=== PATIENT | female | born 1955 | race American Indian/Alaskan Native ===

== ENCOUNTER 2016-08-24 15:21 | Outpatient (CLI) | payer BC ==
--- NOTE | 2016-08-25 13:30 | Mammography Report ---
BILATERAL DIGITAL SCREENING MAMMOGRAM with CAD: 08/24/16 CLINICAL: Routine screening. COMPARISON:08/21/15 FINDINGS: The breasts are almost entirely fatty. No mass, architectural distortion or suspicious calcifications. IMPRESSION: No mammographic evidence of malignancy. BI-RADS CATEGORY: 2 -- Benign RECOMMENDATION: Routine mammographic screening in one year. COMMENT: Patient follow-up letters are generated by our [employer] application.
== END 2016-08-24 15:22 | disposition home or self-care (01) ==
LOC: SPVWC 15:21
PROVIDERS: ATTEND Family Medicine
DX: Z12.31 Encounter for screening mammogram for malignant neoplasm of breast (principal)
CPT/HCPCS: 77067; G0202

== ENCOUNTER 2017-10-05 09:53 | Outpatient (CLI) | payer BC ==
--- NOTE | 2017-10-06 14:27 | Mammography Report ---
BILATERAL DIGITAL SCREENING MAMMOGRAM with CAD: 10/05/17 09:53:00 CLINICAL: Routine screening. COMPARISON:08/24/16 FINDINGS: The breasts are mostly fatty. A left upper inner focal asymmetry requires additional imaging.No architectural distortion or suspicious calcifications.The right breast is negative. IMPRESSION: Left asymmetry requiring further workup. BI-RADS CATEGORY: 0 -- Additional Imaging Evaluation Required RECOMMENDATION: Recall for left lateralmedial , spot magnification CC and MLO views and left breast ultrasound if needed. ACR BI-RADS MAMMOGRAPHIC CODES: 0 = Needs additional imaging evaluation; 1 = Negative; 2 = Benign; 3 = Probably benign; 4 = Suspicious; 5 = Malignant; 6 = Known biopsy-proven malignancy COMMENT: 1. Dense breast tissue, i.e., adenosis, fibrocystic changes, etc., may obscure an underlying neoplasm. 2. Approximately 10% of cancers are not detected with mammography. 3. A negative mammography report should not delay biopsy if a clinically suspicious mass is present. COMMENT: Patient follow-up letters are generated via our [employer] application.
== END 2017-10-05 09:54 | disposition home or self-care (01) ==
LOC: SPVWC 09:53
PROVIDERS: ATTEND Family Medicine
DX: Z12.31 Encounter for screening mammogram for malignant neoplasm of breast (principal)
CPT/HCPCS: 77067

== ENCOUNTER 2017-10-29 09:33 | Outpatient (CLI) | payer BC ==
--- NOTE | 2017-10-29 10:23 | Mammography Report ---
Left mammogram and left breast ultrasound: Based on recent screening exam additional spot magnification CC and lateral views are obtained of the nodule in the upper medial left breast. The additional images demonstrate a spiculated nodule measuring approximately 6.1 mm. No calcifications identified. Ultrasound in the 10:00 location 9 cm from the nipple demonstrates a homogeneously hypoechoic nodule with minimal spiculation measuring 4.6 mm. There is no shadowing. Impression: Suspicious left nodule. Recommendation: Ultrasound-guided biopsy. The findings and recommendations have been discussed with the patient and she has been notified to contact you for scheduling. BI-RADS CATEGORY: 4 = Suspicious ACR BI-RADS MAMMOGRAPHIC CODES: 0 = Needs additional imaging evaluation; 1 = Negative; 2 = Benign; 3 = Probably benign; 4 = Suspicious; 5 = Malignant; 6 = Known biopsy-proven malignancy COMMENT: 1. Dense breast tissue, i.e., adenosis, fibrocystic changes, etc., may obscure an underlying neoplasm. 2. Approximately 10% of cancers are not detected with mammography. 3. A negative mammography report should not delay biopsy if a clinically suspicious mass is present. The
== END 2017-10-29 09:34 | disposition home or self-care (01) ==
LOC: SPVWC 09:33
PROVIDERS: ATTEND Family Medicine
DX: N64.89 Other specified disorders of breast (principal)

== ENCOUNTER 2017-11-12 13:21 | Outpatient (CLI) | payer BC ==
--- NOTE | 2017-11-12 14:46 | Mammography Report ---
LEFT DIGITAL DIAGNOSTIC MAMMOGRAM: 11/12/17 13:21:00 CLINICAL: For clip placement immediately status post ultrasound biopsy. COMPARISON:10/29/17 FINDINGS: A biopsy clip is now identified within the previously described upper inner lesion. The lesion is smaller with less well-defined margins. IMPRESSION: Concordant clip placement status post ultrasound biopsy. BI-RADS CATEGORY: 4--Suspicious Pathology pending.
--- NOTE | 2017-11-12 15:02 | Ultrasound Report ---
VACUUM ASSISTED ULTRASOUND GUIDED NEEDLE CORE BIOPSY WITH CLIP PLACEMENT LEFT BREAST: 11/12/17 13:21:00 CLINICAL: A 5 mm left breast mass at 10 o'clock 9 cm from the nipple. COMPARISON :10/29/17 FINDINGS: The procedure was explained to the patient and informed consent was obtained. Ultrasound demonstrated the previously described 5 mm mass at 10 o'clock. The skin was prepped with Betadine and anesthetized with 1% lidocaine. Vacuum-assisted needle core biopsy was performed through a small dermatotomy using ultrasound guidance, 2% lidocaine with epinephrine for deep anesthesia and a 13-gauge Mammotome Elite biopsy probe. 8 cores were obtained and placed in formalin. A hydro-maddie clip was deployed within the lesion. Hemostasis was achieved with minimal pressure and a sterile dressing was applied. The patient tolerated the procedure well and there were no apparent complications. A two view mammogram demonstrated concordant clip placement and a less well-defined lesion than on the previous mammogram. The patient left the department in good condition with instructions for wound care and follow up. IMPRESSION: Uncomplicated vacuum-assisted ultrasound core biopsy and clip placement left breast.
== END 2017-11-12 13:22 | disposition home or self-care (01) ==
LOC: SPVWC 13:21
PROVIDERS: ATTEND Family Medicine
DX: N63.20 Unspecified lump in the left breast, unspecified quadrant (principal); Z98.890 Other specified postprocedural states; R92.8 Other abnormal and inconclusive findings on diagnostic imaging of breast
CPT/HCPCS: 88305; 88342; 88361

== ENCOUNTER 2017-12-13 07:45 | Day surgery (SDC) | payer BC ==
[~2017-12-13 07:45] MED LIST: LACTATED RINGERS 1,000 ML IV SCH; VERSED IV NR
[2017-12-13] MEDS ORDERED: XYLOCAINE 1% 20 mL ONE (08:43)
[2017-12-13] MEDS ORDERED: XYLOCAINE 1% 20 mL INFILTRATI NR ×2 (09:13→09:24)
[2017-12-13] MEDS ORDERED: ANCEF/STERILE WATER 2 GM/20 ML IV NR (09:16)
[2017-12-13] MEDS ORDERED: PEPCID IV NR (10:23)
--- NOTE | 2017-12-13 10:36 | Anesthesia Day of Surgery ---
Anesthesia Day of Surgery - Day of Surgery Patient Examined: Yes Patient H&P Reviewed: Yes Patient is NPO: Yes
[2017-12-13] MEDS ORDERED: DILAUDID IV PRN (10:37)
[2017-12-13] MEDS ORDERED: ZOFRAN IV PRN (10:37)
--- NOTE | 2017-12-13 10:37 | Anesthesia Consultation ---
Anesthesia Consult and Med Hx Date of service: 12/13/17 - Airway Anesthetic Teeth Evaluation: Good ROM Head & Neck: Adequate Mental/Hyoid Distance: Adequate Mallampati Class: Class III Intubation Access Assessment: Possibly Difficult - Pulmonary Exam CTA: Yes - Cardiac Exam Cardiac Exam: RRR - Pre-Operative Health Status ASA Pre-Surgery Classification: ASA3 Proposed Anesthetic Plan: General - Pulmonary Hx Smoking: Yes (FOR 5 YEARS, 40 YEARS AGO) Hx Asthma: Yes Hx Sleep Apnea: Yes - Cardiovascular System Hx Hypertension: Yes (30 YEARS) - Central Nervous System Hx Psychiatric Problems: No - Other Systems Hx Alcohol Use: No Hx Substance Use: No Hx Cancer: Yes
[2017-12-13] MEDS ORDERED: MARCAINE 0.25% INFILTRATI ONE ×2 (11:04→11:52)
--- NOTE | 2017-12-13 11:06 | Short Stay Summary ---
Short Stay Documentation Date of service: 12/13/17 - History H&P: obtained from office - Allergies and Medications Current Medications: Allergies No Known Allergies Allergy (Verified 12/08/17 15:13) Home Medications Medication Instructions Recorded Confirmed Last Taken Type Amlodipine Besylate/Benazepril 1 each PO DAILY 12/08/17 12/13/17 12/13/17 History [Amlodipine-Benazepril 5-20 mg] Cholecalciferol (Vitamin D3) 2,000 unit PO QDAY 12/08/17 12/13/17 12/09/17 History [Vitamin D3 2,000 unit] Fish Oil/Borage/Flax/Om3,6,9 1 1,200 mg PO DAILY 12/08/17 12/13/17 12/09/17 History [[place] 3-6-9 1,200 mg Softgel] Hydrochlorothiazide [HCTZ] 25 mg PO QDAY 12/08/17 12/13/17 12/07/17 History Multivitamin Tab [Multiple Vitamin 1 each PO QDAY 12/08/17 12/13/17 12/09/17 History TAB (Theragran)] Omeprazole 20 mg PO DAILY 12/08/17 12/13/17 12/13/17 History HYDROcodone/APAP 5-325 [[place] 1 each PO Q6HR PRN #30 tablet 12/13/17 Unknown Rx 5/325] Active Medications Cefazolin Sodium (Ancef/Sterile Water 2 Gm/20 Ml) 2 gm IV PREOP NR Stop: 12/13/17 23:59 Famotidine (Pepcid) 20 mg IV PREOP NR Stop: 12/13/17 23:59 Last Admin: 12/13/17 10:25 Dose: 20 mg Hydromorphone HCl (Dilaudid) 0.5 mg IV Q10MIN PRN PRN Reason: Pain , Severe (7-10) Stop: 12/13/17 23:59 Lactated Ringer's (Lactated Ringers) 1,000 mls @ 100 mls/hr IV DIRECT LUIS Last Admin: 12/13/17 08:55 Dose: 100 mls/hr Lidocaine (Xylocaine 1% 20 Ml) 20 ml INFILTRATI ONCE NR Stop: 12/13/17 13:00 Midazolam HCl (Versed) 2 mg IV PREOP NR Stop: 12/13/17 23:59 Last Admin: 12/13/17 10:30 Dose: 2 mg Ondansetron HCl (Zofran) 4 mg IV ONCE PRN PRN Reason: Nausea And Vomiting - Brief post op/procedure progress note Date of procedure: 12/13/17 Pre-op diagnosis: Left breast cancer of the upper inner quadrant Post-op diagnosis: same Procedure: Left needle localization partial mastectomy with SLNB Anesthesia: GETA Findings: Radiograph specimen with wire and clip present; x1 SLN Surgeon: ROB ELAINE Estimated blood loss: minimal Pathology: list (left partial mastectomy and SLNB) Specimen disposition: to lab Condition: stable - Disposition Condition at discharge: Good Disposition: DC-01 TO HOME OR SELFCARE Short Stay Discharge Plan Activity: other (no heavy lifting) Diet: regular Wound: other (keep incision clean and dry; may shower in 24 hours; no baths, pools or lakes; do not rub or scrub incision) Follow up with: KATEY SOARES MD [Primary Care Provider] - 7 Days ROB ELAINE MD [Staff Physician] - 7 Days Prescriptions: HYDROcodone/APAP 5-325 [[place] 5/325] 1 each PO Q6HR PRN #30 tablet PRN Reason: Pain
[2017-12-13] MEDS ORDERED: XYLOCAINE MPF 2% ONE (11:08)
[2017-12-13] MEDS ORDERED: DIPRIVAN 10 MG/ML IV ONE (11:08)
--- NOTE | 2017-12-13 11:08 | Operative Report ---
Operative Report Operative Report: Date of Service: December 13, 2017 Preoperative diagnosis: Left breast cancer of the upper inner quadrant Postoperative diagnosis: Same Procedure: Left needle localization partial mastectomy of the upper inner quadrant and SLNB Surgeon: Asmita Norton MD Anesthesia: General Findings: Left wire and clip present within radiograph specimen; 1 SLN Complications: None EBL: Minimal Disposition: PACU in good condition Indications for operative procedure: This is a 62 year old lady with newly diagnosed left breast cancer of the upper inner quadrant, Stage I [id number] ER positive. Recommendations are to proceed with breast conservation. She wished to proceed with the above procedure. Procedure in detail: The patient was taken to radiology for wire placement for localization known area of cancer. Patient was then taken to the operating room. Gen. anesthesia was administered. The left nipple was injected with radioisotope. The left breast and axilla were prepped and draped in the normal sterile operative fashion. The wire was identified. Timeout was performed. Gamma probe was inserted into the axilla. The area of hot spot was identified. A left axillary incision was made with a 15 blade knife with dissection taken down to the subcutaneous tissues. The axillary fascia was opened with the Bovie cautery. 1 SLN was identified. All remaining counts were less than 10% of the highest count. Lymph nodes were sent to pathology for permanent processing. Hemostasis was obtained in the left axillary cavity. Axillary cavity was appropriately irrigated and suctioned. Hemostasis was noted. Axillary fascia was approximated and closed using interrupted 3-0 Vicryl and the skin brought together and closed using a running 4-0 Monocryl followed by skin affix. Attention was then taken towards the left breast. Upper inner quadrant breast incision was made with a 15 blade knife and dissection taken down to subcutaneous tissues. First began raising of the lateral flap with removal of the wire from the skin with dissection take down to the pectoralis muscle, followed by raising of the medial flap, superior flap and inferior flap with all flaps taken down to the pectoralis muscle. The breast area of concern was appropriately removed posteriorly from the pectoralis muscle with the aid of the Bovie cautery. The wire was not encountered. Specimen was marked and then sent to pathology and radiology; radiograph specimen with wire, clip and mass present. Breast cavity was irrigated and hemostasis was obtained. The breast cavity was anesthetized with 1% lidocaine mixed with quarter percent Marcaine. The posterior deep breast tissues were approximated and closed using interrupted 3-0 Vicryl. The subcutaneous tissues were approximated and closed using interrupted 3-0 Vicryl followed by closing of the skin with a running 4-0 Monocryl and skin affix. The patient tolerated surgery very well and she was awaken from anesthesia without any complication and transported to PACU in good condition.
[2017-12-13] MEDS ORDERED: DILAUDID ONE (11:09)
[2017-12-13] MEDS ORDERED: WATER FOR IRRIG STERILE IR ONE (11:51)
[2017-12-13] MEDS ORDERED: XYLOCAINE 1% 20 mL INFILTRATI ONE (11:52)
--- NOTE | 2017-12-13 12:07 | Mammography Report ---
NEEDLE LOCALIZATION AND HOOKWIRE PLACEMENT left BREAST:12/13/17 CLINICAL: Left breast cancer. COMPARISON: 11/12/17 FINDINGS: Using mammographic guidance, 1% lidocaine local anesthesia and sterile technique, a 5.0-cm Gold hookwire was placed from a CC from above approach to localize a small mass with a biopsy clip.. Two views demonstrated satisfactory targeting. The hookwire was deployed and a lateral view was obtained. The patient tolerated the procedure well and there were no apparent complications. IMPRESSION: Uncomplicated hookwire placement left breast.
[2017-12-13] MEDS ORDERED: ZOFRAN ONE (12:28)
[2017-12-13] MEDS ORDERED: LACTATED RINGERS 1,000 ML ONE (12:49)
[2017-12-13] MEDS ORDERED: NEO SYNEPHRINE/NS Syringe(OR USE) IV ONE (12:55)
--- NOTE | 2017-12-13 13:09 | Mammography Report ---
SPECIMEN RADIOGRAPH LEFT BREAST: 12/13/17 07:45:00 CLINICAL: Surgical excision of a left breast cancer. FINDINGS: The targeted mass with a biopsy clip and a hookwire are identified within the specimen. IMPRESSION: Excision of the targeted lesion.
--- NOTE | 2017-12-13 14:18 | Post Anesthesia Evaluation ---
- Post Anesthesia Evaluation Patient Participated: Yes Airway Patent: Yes Stable Respiratory Function: Yes Nausea/Vomiting: No Temp > 96.8F: Yes Pain Manageable: Yes Adequeate Hydration: Yes Anesthesia Complications: No
[2017-12-13 16:48] VITALS: BP 153/96
== END 2017-12-13 15:57 | disposition home or self-care (01) ==
LOC: OR 07:45
PROVIDERS: ATTEND Surgery
DX: C50.212 Malignant neoplasm of upper-inner quadrant of left female breast (principal); I10 Essential (primary) hypertension; J45.909 Unspecified asthma, uncomplicated; G47.30 Sleep apnea, unspecified; K21.9 Gastro-esophageal reflux disease without esophagitis; Z87.891 Personal history of nicotine dependence
CPT/HCPCS: 19281; 19301; 38525; 76098; 78800; 88307; 88342; A9541; J0690; J1170; J2250; J2370; J2405; J2704; J7120; 88331; 88333

== ENCOUNTER 2018-01-18 08:06 | Day surgery (SDC) | payer BC ==
--- NOTE | 2018-01-17 12:38 | Anesthesia Consultation ---
Anesthesia Consult and Med Hx Date of service: 01/17/18 - Airway Anesthetic Teeth Evaluation: Good ROM Head & Neck: Adequate Mental/Hyoid Distance: Adequate Mallampati Class: Class III Intubation Access Assessment: Possibly Difficult - Pulmonary Exam CTA: Yes - Cardiac Exam Cardiac Exam: RRR - Pre-Operative Health Status ASA Pre-Surgery Classification: ASA3 Proposed Anesthetic Plan: General (GERD controlled. LMA ok) - Pulmonary Hx Smoking: Yes (FOR 5 YEARS, 40 YEARS AGO) Hx Asthma: Yes Hx Sleep Apnea: Yes - Cardiovascular System Hx Hypertension: Yes (30 YEARS) - Central Nervous System Hx Psychiatric Problems: No - Other Systems Hx Alcohol Use: No Hx Substance Use: No Hx Cancer: Yes
--- NOTE | 2018-01-17 13:05 | XRay Report ---
ROUTINE CHEST, TWO VIEWS: HISTORY: Presurgical evaluation. The trachea, heart, mediastinal contour, lung jacob and bony thorax are unremarkable. IMPRESSION: Unremarkable chest x-ray.
--- NOTE | 2018-01-18 09:09 | Anesthesia Day of Surgery ---
Anesthesia Day of Surgery - Day of Surgery Patient Examined: Yes Patient H&P Reviewed: Yes Patient is NPO: Yes Beta Blockers: No
[2018-01-18 09:26] LABS: BUN/Creatinine Ratio 16; Blood Urea Nitrogen 11 mg/dL (7-17); Hemolysis Index 46
[2018-01-18] MEDS ORDERED: HEPARIN SUB-Q NR (09:45)
[2018-01-18] MEDS ORDERED: NACL 0.9% 1000 ML 1,000 ML IV SCH (10:00)
[2018-01-18] MEDS ORDERED: PEPCID PO NR (10:00)
[2018-01-18] MEDS ORDERED: ZOFRAN IV NR (10:00)
[2018-01-18] MEDS ORDERED: ANCEF/STERILE WATER 2 GM/20 ML IV NR (10:00)
[2018-01-18] MEDS ORDERED: DIPRIVAN 10 MG/ML IV ONE (11:50)
[2018-01-18] MEDS ORDERED: SUBLIMAZE ONE (11:51)
[2018-01-18] MEDS ORDERED: XYLOCAINE MPF 2% ONE (11:53)
[2018-01-18] MEDS ORDERED: ZOFRAN ONE (12:36)
[2018-01-18] MEDS ORDERED: NACL 0.9% IR ONE (12:47)
[2018-01-18] MEDS ORDERED: HEPARIN IV ONE (12:47)
[2018-01-18] MEDS ORDERED: MARCAINE 0.5% INFILTRATI ONE (12:48)
[2018-01-18] MEDS ORDERED: XYLOCAINE 1% 20 mL INFILTRATI ONE (12:48)
[2018-01-18] MEDS ORDERED: NACL 0.9% 250ML IV ONE (12:48)
--- NOTE | 2018-01-18 14:05 | Fluoroscopy Report ---
AP CHEST: HISTORY: Rjrxbi-n-Jbvr insertion AP view of the chest demonstrates a normal mediastinal and cardiac contour with clear lungs and normal bony and soft tissue structures. A right IJ Ziamrh-z-Hqia has been inserted which terminates near the cavoatrial junction. No pneumothorax. IMPRESSION: Unremarkable AP chest. Adequate placement of the right Tjqksb-k-Oupv. No pneumothorax identified.
--- NOTE | 2018-01-18 15:54 | Post Operative Note ---
Date of procedure: 01/18/18 (Dictation# [id number]) Pre-op diagnosis: Breast cancer Post-op diagnosis: same Findings: Normal vascular anatomy. Procedure: Ultrasound assisted port-a-cath placement in Right IJ Anesthesia: DAX Surgeon: HERBERTH MORROW Estimated blood loss: minimal Pathology: none Condition: stable Disposition: PACU
[2018-01-18] MEDS ORDERED: NORCO 5/325 PO SCH (16:38)
[2018-01-18 19:38] VITALS: BP 156/73
--- NOTE | 2018-01-18 22:54 | Operative Report ---
PREOPERATIVE DIAGNOSIS: Breast cancer. POSTOPERATIVE DIAGNOSIS: Breast cancer. PROCEDURE: Ultrasound-guided Port-A-Cath placement in right internal jugular vein. ATTENDING PHYSICIAN: Jose Sparks MD ANESTHESIA: General. ESTIMATED BLOOD LOSS: Minimal. FLUIDS: 1100 mL. FINDINGS: Normal vascular anatomy with good placement of catheter tip near the cavoatrial junction by fluoroscopy and x-ray. SPECIMENS: None. IMPLANTS: Infusaport. COMPLICATIONS: None. DISPOSITION: Stable, transferred to Recovery. INDICATIONS: This is a 62-year-old female who presented to the office for evaluation of Port-A-Cath placement after recent diagnosis of breast cancer. The patient is in need of chemotherapy. The patient appeared to be a good candidate. Procedure, risks, benefits, and alternatives were discussed. Risks included, but were not limited to infection, bleeding, pain, injury to surrounding structures, possible need for further procedures in the future, possible pneumothorax, possible hemothorax, etc. The patient understood and consented. OPERATIVE NOTE: The patient was brought to the operating room and placed on the table in the supine position. After adequate general anesthesia was established, the patient was prepped and draped in the usual sterile fashion. A roll was placed underneath the spine to allow the shoulders to drop back. Under ultrasound evaluation, we initially looked to the right subclavian vein. It appeared to be extremely deep and small; it did not seem to be a good target. Therefore, I turned my attention to the right internal jugular vein. This was an excellent target easily compressible. I saw no evidence of any clots or obstruction along the path of the internal jugular vein. Please note the patient had preoperative antibiotics. SCDs were in place. We made a small stab incision into the skin and in doing so, we most likely injured the small vein. Pressure was held and we were able to stop the bleeding without too much difficulty. I then went to a new site, injected that side with numbing medicine, made a small incision and then under ultrasound guidance, I guided an echogenic needle into the vein on the first attempt. I passed the guidewire into the vein, we could watch the wire go in, we are doing this under direct vision of the ultrasound. The wire was going in the appropriate direction down towards the heart. I could clearly see there was no entry or injury to the artery adjacent to it. Everything looked to be proceeding very well. Then, under fluoroscopic evaluation, we could see the wire go into the heart. We could see it in a normal pattern or normal path of the superior vena cava. I then turned my attention to creation of the pocket. Numbing medicine was used to inject the planned pocket site. Please note for the case, we used a total of 30 mL of 0.5% Marcaine and 1% lidocaine. I used her old biopsy incision scar as my incision site to minimize additional scarring. Using blunt dissection and electrocautery, we created a pocket. The port easily fit. I then tunneled the catheter, with the catheter and port had been flushed previously towards the neck, and we injected the planned insertion site with numbing medicine. We brought the tunneler out the neck catheter was brought through. I then dilated the tract and then introduced the catheter into position. Once we were in near approximation where we wanted to be distally. I then modified the length of the catheter attached to the port and inserted into the pocket. We straightened out any kinks, had easy aspiration and flushing and then we administered the locking solution. This was 1000 units in 5 mL of solution. Please note the patient was in Trendelenburg position during this time. Once everything was completed, everything looked good, we then changed the patient to reverse Trendelenburg position. I closed the pocket with interrupted 3-0 Vicryl dermal stitches and then the skin with a running 4-0 Monocryl subcuticular stitch. The neck insertion site was closed with a single 4-0 Monocryl subcuticular stitch. Skin was clean and dry. Dermabond was placed. The patient tolerated procedure well. There were no complications. All counts were correct at the end of the case. Please note, chest x-ray was done at the end of the case, it showed no evidence of any pneumothorax. The catheter was in good position without any kinking. JOB# [id number] NAKIA/ISHAN
== END 2018-01-18 18:00 | disposition home or self-care (01) ==
LOC: OR 08:06
PROVIDERS: ATTEND Surgery
DX: C50.412 Malignant neoplasm of upper-outer quadrant of left female breast (principal); I10 Essential (primary) hypertension; G47.33 Obstructive sleep apnea (adult) (pediatric); J45.909 Unspecified asthma, uncomplicated; K21.9 Gastro-esophageal reflux disease without esophagitis; Z87.891 Personal history of nicotine dependence; Z79.899 Other long term (current) drug therapy
CPT/HCPCS: 36415; 36561; 71046; 77001; 80048; 87075; 87116; C1788; J0690; J1644; J2405; J2704; J3010; J7050; J7120

== ENCOUNTER 2018-02-11 08:58 | Outpatient (CLI) | payer BC ==
--- NOTE | 2018-02-11 14:49 | Cat Scan Report ---
FINAL REPORT EXAM: CT CHEST W CON HISTORY: MALIGNANT NEOPLASM OF UPPER-OUTER QUADRANT OF LEFT FEMALE BREAST TECHNIQUE: CT of chest with IV contrast. Coronal and sagittal reconstructed images provided. PRIORS: None currently available. FINDINGS: No pneumothorax. No effusion. No consolidation. No endobronchial lesion. Main pulmonary artery is unremarkable. No aortic aneurysm. No dissection. Heart size unremarkable. No pericardial effusion. Mild scarring in the left axillary region. No significant adenopathy. Right axillary regions unremarkable. There is no hilar or mediastinal mass or adenopathy. Images of the esophagus are unremarkable. Irregular soft tissue density in the left breast on series 2:32 measures 2.5 x 1.3 cm. Right port catheter tip is in the SVC. No suspicious osseous lesions on this limited examination of the skeleton. Metastatic disease better evaluated with bone scan. Degenerative changes are present in the spine. IMPRESSION: Indeterminate soft tissue density in left breast. Differential diagnosis includes scarring and tumor. Correlation with mammography is recommended. Otherwise, no acute cardiopulmonary findings.
--- NOTE | 2018-02-11 14:54 | Cat Scan Report ---
FINAL REPORT EXAM: CT ABDOMEN PELVIS W CON HISTORY: MALIGNANT NEOPLASM OF UPPER-OUTER QUADRANT OF LEFT FEMALE BREAST TECHNIQUE: CT of the abdomen and pelvis with IV contrast. Coronal and sagittal reconstructed imaging provided. PRIORS: None currently available. FINDINGS: ABDOMEN: Fatty liver. No suspicious enhancement or lesions. Gallbladder, stomach, spleen, pancreas, and adrenals are unremarkable. Kidneys: Symmetrical cortical enhancement. No hydronephrosis. There is no abdominal aortic aneurysm. No dissection. Mild atherosclerotic disease noted. IVC is unremarkable. There is no periaortic or retroperitoneal adenopathy or mass. Left colon diverticulosis. Wall thickening and stranding of the sigmoid colon down to the rectum identified. No perforation or abscess. Collapsed distal half the transverse colon limits evaluation for wall thickening. No stranding identified. Mild colitis is not entirely excluded dissection. Btor-mc-[id number] stool in the remainder of the colon without wall thickening or inflammatory changes. Terminal ileum is unremarkable. Appendix is normal. Small bowel loops are unremarkable. No obstructive pattern. No free air. No free fluid. Mesentery is unremarkable. Diastasis recti with a broad-based protrusion. Superimposed fat containing umbilical hernia. No strangulation. PELVIS: Uterus is not clearly identified and may be surgically removed, small, or atrophic. Suspect prior hysterectomy. Bladder is unremarkable. There is no pelvic mass or adenopathy. Inguinal regions are unremarkable. Bones: No suspicious osseous lesions on this limited examination of the skeleton. Metastatic disease better evaluated with bone scan. Degenerative changes are in the spine. IMPRESSION: Mild or chronic colitis or diverticulitis of the sigmoid colon down to the rectum. No perforation. No abscess. Mild fatty liver. No suspicious lesions.
--- NOTE | 2018-02-11 15:12 | Nuclear Medicine Report ---
Whole body bone scan: Following injection of radionuclide whole-body images were obtained approximately 3 hours. There is normal activity in the urinary tract and there is a relatively good bone to background ratio. In the frontal projection on the left at approximately the lateral fourth rib there is a focal mild increased area of increased radionuclide uptake. There is a focal increased area of uptake in the lateral mid cervical spine posteriorly on the left. Scattered areas of uptake are seen around both knees. Impressions: The focal rib activity is of questionable significance. The other areas of uptake are consistent with degenerative changes of aging. No bone correlation on today's CT scan. Recommendation: Suggest repeat scan in 3-6 months to reevaluate.
== END 2018-02-11 08:59 | disposition home or self-care (01) ==
LOC: NM 08:58
PROVIDERS: ATTEND Internal Medicine Hematology & Oncology
DX: C50.412 Malignant neoplasm of upper-outer quadrant of left female breast (principal); K76.0 Fatty (change of) liver, not elsewhere classified; I70.0 Atherosclerosis of aorta; K57.30 Diverticulosis of large intestine without perforation or abscess without bleeding; M47.899 Other spondylosis, site unspecified; J98.4 Other disorders of lung; Z87.891 Personal history of nicotine dependence; I10 Essential (primary) hypertension; E78.00 Pure hypercholesterolemia, unspecified; J45.909 Unspecified asthma, uncomplicated; K21.9 Gastro-esophageal reflux disease without esophagitis; M19.90 Unspecified osteoarthritis, unspecified site; Z90.710 Acquired absence of both cervix and uterus
CPT/HCPCS: 71260; 74177; 78306; A9503; Q9967

== ENCOUNTER 2018-04-25 09:12 | Outpatient (CLI) | payer BC ==
--- NOTE | 2018-04-25 14:16 | Nuclear Medicine Report ---
BONE SCAN: History: Breast cancer. Findings: Mild contamination in the perineum and the right flank soft tissues is noted. After injection of isotope, gamma camera imaging of the bony system was done. Mild degenerative uptake is noted in the shoulders, sternoclavicular joints, knees and ankles. There is focal uptake in the right side of the mandible consistent with periodontal disease. There is a normal uptake of isotope throughout the bony structures without areas of significantly increased or decreased uptake. Normal uptake in the urinary system is seen. IMPRESSION: No evidence for metastatic disease to the bony structures.
== END 2018-04-25 09:13 | disposition home or self-care (01) ==
LOC: NM 09:12
PROVIDERS: ATTEND Internal Medicine Hematology & Oncology
DX: C50.412 Malignant neoplasm of upper-outer quadrant of left female breast (principal); I10 Essential (primary) hypertension; E78.00 Pure hypercholesterolemia, unspecified; J45.909 Unspecified asthma, uncomplicated; K21.9 Gastro-esophageal reflux disease without esophagitis; M19.90 Unspecified osteoarthritis, unspecified site; Z90.710 Acquired absence of both cervix and uterus; Z87.891 Personal history of nicotine dependence
CPT/HCPCS: 78306; A9503

== ENCOUNTER 2018-10-11 10:56 | Outpatient (CLI) | payer BC ==
--- NOTE | 2018-10-11 12:23 | Mammography Report ---
Bilateral mammogram: Compared to 11/12/17. CAD study utilized. Findings: Predominance adipose tissue bilaterally. Generalized increase in density left breast compatible right secondary to postradiation changes. There is focal area of ill-defined density without mass or microcalcification identified probably at site of previous surgery. Normal axilla. Unremarkable right breast. Impression: Post radiation changes left breast probably benign. Six-month followup with mammogram recommended. BI-RADS CATEGORY: 3 = Probably benign ACR BI-RADS MAMMOGRAPHIC CODES: 0 = Needs additional imaging evaluation; 1 = Negative; 2 = Benign; 3 = Probably benign; 4 = Suspicious; 5 = Malignant; 6 = Known biopsy-proven malignancy COMMENT: 1. Dense breast tissue, i.e., adenosis, fibrocystic changes, etc., may obscure an underlying neoplasm. 2. Approximately 10% of cancers are not detected with mammography. 3. A negative mammography report should not delay biopsy if a clinically suspicious mass is present. COMMENT: Patient follow-up letters are generated in [employer].
== END 2018-10-11 10:57 | disposition home or self-care (01) ==
LOC: SPVWC 10:56
PROVIDERS: ATTEND Surgery
DX: C50.212 Malignant neoplasm of upper-inner quadrant of left female breast (principal); E78.00 Pure hypercholesterolemia, unspecified; I10 Essential (primary) hypertension; J45.909 Unspecified asthma, uncomplicated; K21.9 Gastro-esophageal reflux disease without esophagitis; M19.90 Unspecified osteoarthritis, unspecified site; Z87.891 Personal history of nicotine dependence; Z90.710 Acquired absence of both cervix and uterus
CPT/HCPCS: 77066

== ENCOUNTER 2019-04-11 09:51 | Outpatient (CLI) | payer BC, MEDICARE ==
--- NOTE | 2019-04-11 10:39 | Mammography Report ---
LEFT DIGITAL DIAGNOSTIC MAMMOGRAM INDICATION: Follow-up status post left partial mastectomy. TECHNIQUE: Digital left mammographic imaging was performed. COMPARISON: 10/11/2018 FINDINGS: Breast Density: There are scattered fibroglandular densities. There is no evidence of dominant mass, suspicious calcifications or suspicious architectural distorti on. 9 inner postsurgical scar. Moderate skin thickening of the breast is increased since the last exa m. IMPRESSION: No mammographic evidence of malignancy. Benign postsurgical and post radiation changes. BI-RADS Category 2: Benign. Recommend routine screening mammography. A "normal" or negative report should not discourage follow up or biopsy of a clinically significant f inding. A written summary of these findings will be mailed to the patient. The patient will be entered into a mammography reporting system which will generate a reminder letter for the patient's next appointmen t at the appropriate interval. FURTHER INFORMATION: According to the [employer], yearly mammograms are recommend ed starting at age 40 and continuing as long as a woman is in good health. Breast MRI is recommended for women with an approximately 20-25% or greater lifetime risk of breast cancer, including women wi th a strong family history of breast or ovarian cancer and women who have been treated for Hodgkin's disease. Signer Name: Jarred Ortiz MD Signed: 04/11/2019 10:35 AM Workstation Name: [id number]
== END 2019-04-11 09:52 | disposition home or self-care (01) ==
LOC: SPVWC 09:51
PROVIDERS: ATTEND Surgery
DX: C50.212 Malignant neoplasm of upper-inner quadrant of left female breast (principal); E78.00 Pure hypercholesterolemia, unspecified; I10 Essential (primary) hypertension; J45.909 Unspecified asthma, uncomplicated; K21.9 Gastro-esophageal reflux disease without esophagitis; Z90.710 Acquired absence of both cervix and uterus

== ENCOUNTER 2019-05-30 05:53 | Day surgery (SDC) | payer MEDICARE ==
[~2019-05-30 05:53] MED LIST changes: +ANCEF/STERILE WATER 2 GM/20 ML 2 GM/20 ML SYRINGE IV NR; -LACTATED RINGERS 1,000 ML IV SCH; +NACL 0.9% 1000 ML 1,000 ML IV SCH; +NEURONTIN PO NR; +TYLENOL PO NR; -VERSED IV NR
--- NOTE | 2019-05-30 07:10 | Anesthesia Consultation ---
Anesthesia Consult and Med Hx Date of service: 05/30/19 - Airway Anesthetic Teeth Evaluation: Poor (several missing teeth, chipped top right incisor) ROM Head & Neck: Adequate Mental/Hyoid Distance: Adequate Mallampati Class: Class III Intubation Access Assessment: Possibly Difficult (previous easy LMA 4) - Pulmonary Exam CTA: Yes - Cardiac Exam Cardiac Exam: RRR - Pre-Operative Health Status ASA Pre-Surgery Classification: ASA3 Proposed Anesthetic Plan: MAC - Pulmonary Hx Smoking: Yes (quit 40yrs ago) Hx Asthma: Yes (last inhaler use 3 days ago) Hx Respiratory Symptoms: No Hx Sleep Apnea: Yes (compliant with CPAP) - Cardiovascular System Hx Hypertension: Yes (last metoprolol 05/29 PM) Hx Heart Attack/AMI: No - Central Nervous System CVA: No Hx Psychiatric Problems: No - Gastrointestinal Hx Gastroesophageal Reflux Disease: Yes (well controlled) - Endocrine Hx Renal Disease: No Hx Liver Disease: No Hx Insulin Dependent Diabetes: No Hx Non-Insulin Dependent Diabetes: No Hx Thyroid Disease: No - Hematic Hx Anemia: No - Other Systems Hx Cancer: Yes Hx Obesity: Yes - Additional Comments Anesthesia Medical History Comments: No hx anesthetic complications.
--- NOTE | 2019-05-30 07:10 | Anesthesia Day of Surgery ---
Anesthesia Day of Surgery - Day of Surgery Patient Examined: Yes Patient H&P Reviewed: Yes Patient is NPO: Yes Beta Blockers: Yes
[2019-05-30] MEDS ORDERED: XYLOCAINE 1% 20 mL ONE (07:14)
[2019-05-30] MEDS ORDERED: SUBLIMAZE ONE (07:29)
[2019-05-30] MEDS ORDERED: DIPRIVAN 10 MG/ML IV ONE (07:29)
[2019-05-30] MEDS ORDERED: XYLOCAINE MPF 2% ONE (07:30)
[2019-05-30] MEDS ORDERED: MARCAINE-EPI 0.5%-1:200,000 INFILTRATI ONE ×3 (07:34→07:57)
[2019-05-30] MEDS ORDERED: VERSED ONE (07:52)
[2019-05-30] MEDS ORDERED: KETAMINE 50 MG/ML-WATER SYRING ONE (07:54)
[2019-05-30] MEDS ORDERED: NACL 0.9% IR ONE (07:58)
[2019-05-30] MEDS ORDERED: XYLOCAINE 1% 20 mL INFILTRATI ONE (07:58)
--- NOTE | 2019-05-30 08:15 | Short Stay Summary ---
Short Stay Documentation Date of service: 05/30/19 - History H&P: obtained from office - Allergies and Medications Current Medications: Allergies No Known Allergies Allergy (Verified 05/25/19 10:11) Home Medications Medication Instructions Recorded Confirmed Last Taken Type Omeprazole 20 mg PO DAILY 12/08/17 05/30/19 05/30/19 04:15 History Ergocalciferol [Vitamin D2] 1 cap PO QWEEK 05/25/19 05/30/19 05/28/19 History Fluticasone (Nf) [Flovent 220 2 puff IH BID 05/25/19 05/25/19 05/29/19 History MCG/PUFF HFA] Fluticasone [Flonase] 1 spray NS QDAY 05/25/19 05/25/19 05/29/19 History Furosemide [Lasix TAB] 40 mg PO QDAY 05/25/19 05/25/19 05/29/19 History Letrozole (Nf) [Femara (Nf)] 2.5 mg PO QDAY 05/25/19 05/25/19 05/29/19 History Metoprolol Succinate [Kapspargo 50 mg PO QHS 05/25/19 05/30/19 05/29/19 22:30 History Sprinkle] Olmesartan Medoxomil [Benicar] 40 mg PO QDAY 05/25/19 05/25/19 05/29/19 History Active Medications Acetaminophen (Tylenol) 1,000 mg PO PREOP NR Stop: 05/30/19 16:00 Last Admin: 05/30/19 06:28 Dose: 1,000 mg Documented by: Celecoxib (Celebrex) 200 mg PO PREOP NR Stop: 05/30/19 13:00 Last Admin: 05/30/19 06:28 Dose: 200 mg Documented by: Gabapentin (Neurontin) 300 mg PO PREOP NR Stop: 05/30/19 13:00 Last Admin: 05/30/19 06:40 Dose: 300 mg Documented by: Sodium Chloride (Nacl 0.9% 1000 Ml) 1,000 mls @ 100 mls/hr IV DIRECT LUIS Last Admin: 05/30/19 06:45 Dose: 100 mls/hr Documented by: Cefazolin Sodium (Ancef/Sterile Water 2 Gm/20 Ml) 2 gm in 20 mls @ 80 mls/hr IV PREOP NR; Protocol Stop: 05/30/19 16:00 - Physical exam General appearance: no acute distress Integumentary: no rash HEENT: Atraumatic Lungs: Normal air movement - Brief post op/procedure progress note Date of procedure: 05/30/19 (dictation:[id number]) Pre-op diagnosis: breast cancer Post-op diagnosis: same Procedure: Port removal IVF 600cc EBL min Anesthesia: MAC Findings: normal tissue and port appearance Surgeon: HERBERTH MORROW Estimated blood loss: minimal Pathology: list (mid-portion of catheter for routine culture) Specimen disposition: to lab Condition: stable - Hospital course Hospital course: uneventful - Disposition Condition at discharge: Stable Disposition: DC- TO HOME OR SELFCARE Short Stay Discharge Plan Diet: regular Special Instructions: no heavy lifting (1 week) Additional Instructions: Post Operative Instructions May shower tomorrow. Pat dry the wound or wounds. Wound - Keep clean and dry, open to air. After surgery, start with a light diet. Consider having a liquid diet first. If you do well, you can advance to a regular diet as you feel comfortable. Apply an ice pack to the wound or wounds for 10-20 minutes at a time. Do this at least 4-5 times a day. You can do it more if he would like. Alternate the use of ibuprofen and Tylenol for the first 2 days. I want you to take these on a scheduled basis. Take 600 mg of ibuprofen every 6 hours. Take 500 mg of Tylenol every 6 hours. You should alternate these 2 medicines. In other words, beginning with the ibuprofen. After 3 hours, take the Tylenol. Keep alternating the 2 drugs every 3 hours. Do this on a scheduled basis for the first 2 days. After that, you can take them as needed. It is very important that you use the prescription pain medicine only for very severe pain. Do not take the prescription medicine before you try using the ibuprofen and Tylenol. We will call you in a couple of days to see how youre doing. If you have any questions or concerns, always feel free to call the clinic at any time. Follow up with: MANJEET GARCÍA NP [Primary Care Provider] - 7 Days Prescriptions: HYDROcodone/APAP 5-325 [[place] 5/325] 1 each PO Q6HR PRN #5 tablet PRN Reason: Pain , Severe (7-10)
[2019-05-30] MEDS ORDERED: APRESOLINE IV ONE (09:30)
[2019-05-30 09:40] VITALS: BP 127/63
--- NOTE | 2019-05-30 11:06 | Operative Report ---
PREOPERATIVE DIAGNOSIS: Breast cancer. POSTOPERATIVE DIAGNOSIS: Breast cancer. PROCEDURE: Removal of tunneled central venous access device with subcutaneous port. ATTENDING PHYSICIAN: Jose Sparks MD ANESTHESIA: Local MAC. ESTIMATED BLOOD LOSS: Minimal. FLUIDS: 600 mL. FINDINGS: Normal catheter and surrounding tissue. SPECIMEN: Mid portion of catheter for routine culture. DRAINS: None. COMPLICATIONS: None. DISPOSITION: Stable, transferred to Recovery Room. INDICATIONS: This is a 64-year-old female who is well known to our service as we had previously placed a port for chemotherapy. The patient now returns as chemotherapy is finished and would like the port removed. Procedure, risks, benefits were explained to the patient. Risks included but were not limited to infection, bleeding, pain, injury to surrounding structures, possible need for further procedures in the future. The patient understood and consented. OPERATIVE NOTE: The patient was brought to the operating room and placed on the table in supine position. After adequate sedation was established, the patient was prepped and draped in the usual sterile fashion. SCDs were in place. Antibiotics have been given. Time-out was called. I began by administering a fair amount of local anesthetic under the incision and around the port. Previous incision was opened sharply. Dissection was carried down with electrocautery to the port. Port was from the surrounding tissue. It was removed intact. The patient was then placed in Trendelenburg position. Catheter was removed and pressure was held over the internal jugular vein at the insertion site in a sterile manner. The mid portion was excised into a specimen cup and then the cup was closed. We then placed the patient in reverse Trendelenburg, continuing to hold pressure. I closed the deep layer of the pocket once we were assured that there was no active bleeding. I closed the deep layer with interrupted 3-0 Vicryl sutures. We then released the pressure on the vein at this point. Pressure had been held at least a few minutes. Skin was closed with 4-0 Monocryl subcuticular stitches in a running fashion. Skin was cleaned and dried. Dermabond was placed. The patient tolerated the procedure well. There were no complications. All counts were correct at the end of the case. JOB# [id number] NAKIA/ISHAN
--- NOTE | 2019-05-30 11:46 | Post Anesthesia Evaluation ---
- Post Anesthesia Evaluation Patient Participated: Yes Airway Patent: Yes Stable Respiratory Function: Yes Nausea/Vomiting: No Temp > 96.8F: Yes Pain Manageable: Yes Adequeate Hydration: Yes Anesthesia Complications: No Block Receding Appropriately: Not Applicable Patient on Ventilator: No
== END 2019-05-30 09:53 | disposition home or self-care (01) ==
LOC: OR 05:53
PROVIDERS: ATTEND Surgery
DX: C50.919 Malignant neoplasm of unspecified site of unspecified female breast (principal); E80.0 Hereditary erythropoietic porphyria; I10 Essential (primary) hypertension; J45.909 Unspecified asthma, uncomplicated; G47.30 Sleep apnea, unspecified; K21.9 Gastro-esophageal reflux disease without esophagitis; M19.90 Unspecified osteoarthritis, unspecified site; Z79.899 Other long term (current) drug therapy; Z87.891 Personal history of nicotine dependence; Z98.891 History of uterine scar from previous surgery; Z90.710 Acquired absence of both cervix and uterus; Z80.3 Family history of malignant neoplasm of breast; Z90.12 Acquired absence of left breast and nipple
CPT/HCPCS: 36590; 82803; 87116; J0360; J0690; J2250; J2704; J3010; J7030

== ENCOUNTER 2019-06-08 12:54 | Outpatient (CLI) | payer MEDICARE ==
--- NOTE | 2019-06-09 09:19 | PET Report ---
PET/CT HISTORY: C50.412. Restaging of left breast cancer TECHNIQUE: The patient's fasting blood glucose was 98. The patient weighed 221 lbs. The patient wa s injected with 15.2 mCi of FDG in the right antecubital fossa at 1327 hours and imaging was started at 1412 hours. The patient was imaged from the skull base to the thighs. All CT scans at this locati on are performed using CT dose reduction for ALARA by means of automated exposure control. Images wer e reviewed on a workstation. COMPARISON: 06/09/2018 FINDINGS: IMAGED BRAIN: [Physiologic FDG uptake] NECK: [Physiologic FDG uptake] CHEST WALL: [Physiologic FDG uptake]. Surgical scar in the superior left breast appears stable. No r ecurrent chest wall mass or thoracic adenopathy. The right Rvexqv-s-Ghgu has been removed. MEDIASTINUM: [Physiologic FDG uptake] LUNGS: [Physiologic FDG uptake]. Stable mild cardiomegaly and chronic interstitial changes in both l ungs. No pulmonary nodule or mass. HEPATOBILIARY: [Physiologic FDG uptake]. Liver SUV measures 4.2. PANCREAS: [Physiologic FDG uptake SPLEEN: [Physiologic FDG uptake] KIDNEYS/BLADDER: [Physiologic FDG uptake] ADRENAL GLANDS: [Physiologic FDG uptake] GI/MESENTERY: [Physiologic FDG uptake]. Diverticulosis of the distal colon is again noted. PELVIC VISCERA: [Physiologic FDG uptake] LYMPH NODES: [Physiologic FDG uptake]. No adenopathy is identified. OSSEOUS STRUCTURES: [Physiologic FDG uptake]. No suspicious bony lesions are identified. ADDITIONAL FINDINGS: [None] IMPRESSION: Negative PET CT. Stable findings since 06/09/2018. No evidence for disease recurrence or metastasis. Signer Name: Marcelino Constantino Jr, MD Signed: 06/09/2019 9:14 AM Workstation Name: [id number]
== END 2019-06-08 12:55 | disposition home or self-care (01) ==
LOC: PET 12:54
PROVIDERS: ATTEND Internal Medicine Hematology & Oncology
DX: C50.412 Malignant neoplasm of upper-outer quadrant of left female breast (principal); K57.30 Diverticulosis of large intestine without perforation or abscess without bleeding; K21.9 Gastro-esophageal reflux disease without esophagitis; Z79.899 Other long term (current) drug therapy
CPT/HCPCS: 78815; 82962; A9552

== ENCOUNTER 2019-08-21 15:03 | Outpatient (CLI) | payer MEDICARE ==
--- NOTE | 2019-08-21 16:22 | Ultrasound Report ---
LEFT DIGITAL DIAGNOSTIC MAMMOGRAM WITH CAD 08/21/2019 LEFT LIMITED BREAST ULTRASOUND INDICATION: History of left breast cancer status post left partial mastectomy in 2018. Palp lumps lef t breast TECHNIQUE: Digital left mammographic imaging was performed. Limited ultrasound was performed. This e xamination was interpreted with the benefit of Computer-Aided Detection (CAD) analysis. COMPARISON: 10/11/2018 FINDINGS: Breast Density: There are scattered areas of fibroglandular density. MAMMOGRAPHIC FINDINGS: There is no evidence of dominant mass, suspicious calcifications or architectu ral distortion in the left breast. Benign upper inner postsurgical scar with a triangular palpable ma rker. No mammographic finding in the left axilla at a palpable marker. ULTRASOUND FINDINGS: Targeted ultrasound evaluation was performed of the area of interest. Ultrasou nd of the left breast was performed at 11:00 6 cm from the nipple in the area of the surgical scar an d demonstrated normal-appearing shadowing scar. No mass or cyst. Ultrasound of the left axilla demons trated a benign intradermal circumscribed oval mass measuring 5 mm. IMPRESSION: Benign scar and a benign intradermal axillary mass. No suspicious findings. Follow up recommendation: Routine yearly BI-RADS Category 2: Benign. A "normal" or negative report should not discourage follow up or biopsy of a clinically significant f inding. A written summary of these findings will be mailed to the patient. The patient will be entered into a mammography reporting system which will generate a reminder letter for the patient's next appointmen t at the appropriate interval. According to the [employer], yearly mammograms are recommended starting at age 40 and continuing as long as a woman is in good health. Breast MRI is recommended for women with an castro roximately 20-25% or greater lifetime risk of breast cancer, including women with a strong family his tory of breast or ovarian cancer and women who have been treated for Hodgkin's disease. Signer Name: Jarred Ortiz MD Signed: 08/21/2019 4:18 PM Workstation Name: [id number]
== END 2019-08-21 15:04 | disposition home or self-care (01) ==
LOC: SPVWC 15:03
PROVIDERS: ATTEND Internal Medicine Hematology & Oncology
DX: C50.412 Malignant neoplasm of upper-outer quadrant of left female breast (principal)

== ENCOUNTER 2019-10-24 09:55 | Outpatient (CLI) | payer MEDICARE ==
--- NOTE | 2019-10-24 11:18 | Mammography Report ---
DIGITAL SCREENING MAMMOGRAM WITH CAD, 10/24/2019 INDICATION: Routine screening mammography. Breast cancer survivor status post left partial mastectomy . TECHNIQUE: Digital bilateral 2D mammography was obtained in the craniocaudal and mediolateral obliq ue projections. This examination was interpreted with the benefit of Computer-Aided Detection analysi s. COMPARISON: 10/11/2018 FINDINGS: Breast Density: There are scattered areas of fibroglandular density. There is no evidence of dominant mass, suspicious calcifications or suspicious architectural distorti on in either breast. Left inner benign postsurgical scar. IMPRESSION: No mammographic evidence of malignancy. Follow up recommendation: Routine yearly BI-RADS Category 2: Benign. A "normal" or negative report should not discourage follow up or biopsy of a clinically significant f inding. A written summary of these findings will be mailed to the patient. The patient will be entered into a mammography reporting system which will generate a reminder letter for the patient's next appointmen t at the appropriate interval. The [employer] recommends yearly mammograms starting at age 40 and continuing as l soy as a woman is in good health. Breast MRI is recommended for women with an approximate 20-25% or greater lifetime risk of breast cancer, including women with a strong family history of breast or ova indira cancer or who have been treated for Hodgkin's disease. Signer Name: Jarred Ortiz MD Signed: 10/24/2019 11:14 AM Workstation Name: [id number]
== END 2019-10-24 09:56 | disposition home or self-care (01) ==
LOC: SPVWC 09:55
PROVIDERS: ATTEND Surgery
DX: Z12.31 Encounter for screening mammogram for malignant neoplasm of breast (principal)
CPT/HCPCS: 77067

== ENCOUNTER 2020-06-28 08:54 | Outpatient (CLI) | payer MEDICARE ==
[2020-06-28 09:29] LABS: Blood Urea Nitrogen 10 mg/dL (7-17)
--- NOTE | 2020-06-28 12:43 | Cat Scan Report ---
CT CHEST WITH CONTRAST INDICATION / CLINICAL INFORMATION: Malignant neoplasm of left breast, elevated tumor markers. TECHNIQUE: Axial CT images were obtained through the chest after 100 cc Omnipaque 300 IV contrast. Sagittal and coronal reformatted images. All CT scans at this location are performed using CT dose reduction for A OXANA by means of automated exposure control. COMPARISON: PET/CT 06/09/2018. CT chest 02/11/2018 FINDINGS: HEART: Stable mild cardiomegaly. No pericardial abnormality. THORACIC AORTA: No significant abnormality. MEDIASTINUM and RICKY: No significant abnormality. There are a few scattered mediastinal lymph nodes w hich are not pathologically enlarged on CT. There appearance is unchanged since the previous PET/CT. LUNGS: There are scattered focal groundglass opacities in the periphery of both lungs. This is a nons pecific finding and probably represents mild air trapping. Atypical infiltrates could also be conside red but is thought less likely. No consolidation or pulmonary nodule. PLEURA: No significant pleural effusion. No pneumothorax. SKELETAL SYSTEM: No suspicious bony lesion. ADDITIONAL FINDINGS: None. IMPRESSION: Stable findings since PET/CT dated 06/09/2018. Mild cardiomegaly. Mild air trapping in both lungs versus atypical infiltrates. No definite evidence for recurrent or me tastatic disease in the chest. CT ABDOMEN AND PELVIS WITH CONTRAST HISTORY: Malignant neoplasm of left breast, elevated tumor markers COMPARISON: PET/CT 06/09/2018. CT abdomen pelvis 02/02/1918. TECHNIQUE: Axial CT images were obtained through the abdomen and pelvis after 100 cc of Omnipaque 300 intravenously. Sagittal and coronal reformatted images. All CT scans at this location are performed using CT dose reduction for ALARA by means of automated exposure control. FINDINGS: CT ABDOMEN: Liver: Stable mild hepatic steatosis. No suspicious liver lesion has developed. Biliary: No significant abnormality. Spleen: No significant abnormality. Unenlarged. Pancreas: No significant abnormality. Adrenals: No significant abnormality. Kidneys: No significant abnormality. Lymphatics: No lymphadenopathy. Vasculature: No significant abnormality. Bowel/Peritoneum: No significant abnormality. No free air. No free fluid. CT PELVIS: : Stable hysterectomy changes. The bladder is empty but unremarkable. Osseous Structures: No suspicious bony lesion is detected. Additional Findings: None IMPRESSION: Stable findings in the abdomen with no evidence for disease metastasis. Signer Name: Marcelino Constantino Jr, MD Signed: 06/28/2020 12:38 PM Workstation Name: [id number]
--- NOTE | 2020-06-28 14:37 | Nuclear Medicine Report ---
NUCLEAR MEDICINE BONE SCAN, WHOLE BODY INDICATION: MALIGNANT NEOPLASM OF LEFT BREAST, RESTAGING EVALUATION. TECHNIQUE: 24.1 mCi of Tc-99m MDP were injected IV. Whole body images were obtained. COMPARISON: CT chest abdomen and pelvis performed the same day. Bone scan dated 04/25/2018. FINDINGS: Skeletal Structures: Fairly symmetric, likely degenerative uptake is present involving the cervical spine, shoulders, sternoclavicular joints, knees and feet. Skeletal Lesions: None. Soft Tissues: Normal. Kidneys: Normal, symmetric activity. Additional Findings: None. IMPRESSION: Degenerative findings as described. No evidence for skeletal metastasis. No significant change since 04/25/2018 bone scan.. Signer Name: Marcelino Constantino Jr, MD Signed: 06/28/2020 2:33 PM Workstation Name: [id number]
== END 2020-06-28 08:55 | disposition home or self-care (01) ==
LOC: NM 08:54
PROVIDERS: ATTEND Internal Medicine Hematology & Oncology
DX: C50.412 Malignant neoplasm of upper-outer quadrant of left female breast (principal); K76.0 Fatty (change of) liver, not elsewhere classified; I51.7 Cardiomegaly; J98.4 Other disorders of lung
CPT/HCPCS: 36415; 71260; 74177; 78306; 82565; 84520; A9503; Q9967

== ENCOUNTER 2020-10-29 09:07 | Outpatient (CLI) | payer MEDICARE ==
--- NOTE | 2020-10-29 10:01 | Mammography Report ---
DIGITAL SCREENING MAMMOGRAM WITH CAD, 10/29/2020 CLINICAL INFORMATION / INDICATION: Routine screening mammography. SCREENING MAMMO TECHNIQUE: Digital bilateral 2D mammography was obtained in the craniocaudal and mediolateral obliqu e projections. This examination was interpreted with the benefit of Computer-Aided Detection analysis . COMPARISON: October 05 02/02/2019 through 10/24/2019. FINDINGS: Breast Density: There are scattered areas of fibroglandular density. No dominant mass, suspicious calcifications, or architectural distortion in the right breast. Post lumpectomy/radiation changes in the left breast are stable. No new abnormality is seen. IMPRESSION: No mammographic evidence of malignancy. Follow up recommendation: Routine yearly BI-RADS Category 2: Benign. A "normal" or negative report should not discourage follow up or biopsy of a clinically significant f inding. A written summary of these findings will be mailed to the patient. The patient will be entered into a mammography reporting system which will generate a reminder letter for the patient's next appointmen t at the appropriate interval. The [employer] recommends yearly mammograms starting at age 40 and continuing as l soy as a woman is in good health. Breast MRI is recommended for women with an approximate 20-25% or greater lifetime risk of breast cancer, including women with a strong family history of breast or ova indira cancer or who have been treated for Hodgkin's disease. Signer Name: Jim Sims MD Signed: 10/29/2020 9:56 AM Workstation Name: [email or web address]
== END 2020-10-29 09:08 | disposition home or self-care (01) ==
LOC: SPVWC 09:07
PROVIDERS: ATTEND Surgery
DX: Z12.31 Encounter for screening mammogram for malignant neoplasm of breast (principal); N64.89 Other specified disorders of breast
CPT/HCPCS: 77067

== ENCOUNTER 2020-11-18 10:49 | Outpatient (CLI) | payer MEDICARE ==
--- NOTE | 2020-11-18 12:01 | Mammography Report ---
DEXA BONE DENSITY SCAN INDICATION / CLINICAL INFORMATION: LEFT BREAST CA C50.412/ ON AROMATASE THERAPY Z79.811. 65 years Female COMPARISON: None available. LUMBAR SPINE, L1-L4: - Bone mineral density (BMD) = 1.473 g/cm2. - T-score = 2.9 - Z-score = 5.0 Change (%) since most recent prior (if available): None available. LEFT HIP, NECK : - Bone mineral density (BMD) = 1.002 g/cm2. - T-score = 0.4 - Z-score = 1.7 Change (%) since most recent prior (if available): None available. IMPRESSION: 1. WHO Classification: Normal bone density. Fracture Risk: Not Increased. Note: 10-Year Fracture Risk (FRAX) not reported. This DEXA unit lacks FRAX functionality. BMD Reporting Guidelines (ISCD, 2015) BMD Reporting in Postmenopausal Women and in Men Age 50 and Older - T-scores are preferred. - The WHO densitometric classification is applicable. BMD Reporting in Females Prior to Menopause and in Males Younger Than Age 50 - Z-scores, not T-scores, are preferred. This is particularly important in children. - A Z-score of -2.0 or lower is defined as below the expected range for age, and a Z-score above -2.0 is within the expected range for age. - Osteoporosis cannot be diagnosed in men under age 50 on the basis of BMD alone. - The WHO diagnostic criteria may be applied to women in the menopausal transition. http://www.iscd.org/official-positions/1823-jabn-lxloupgm-positions-adult/ Signer Name: Johan Hanley MD Signed: 11/18/2020 11:56 AM Workstation Name: [id number]
== END 2020-11-18 10:50 | disposition home or self-care (01) ==
LOC: SPVWC 10:49
PROVIDERS: ATTEND Internal Medicine Hematology & Oncology
DX: C50.412 Malignant neoplasm of upper-outer quadrant of left female breast (principal); Z79.811 Long term (current) use of aromatase inhibitors
CPT/HCPCS: 77080

== ENCOUNTER 2021-09-12 07:32 | Day surgery (SDC) | payer MEDICARE ==
[2021-09-12] MEDS ORDERED: SODIUM CHLORIDE 0.9% 500 ML 500 ML IV SCH (08:00)
[2021-09-12 08:30] LABS: Basophils % (Auto) 0.5 % (0.0-1.8); Eosinophils # (Auto) 0.1 K/mm3 (0.0-0.4); Eosinophils % (Auto) 1.8 % (0.0-4.3); Hematocrit 39.2 % (30.3-42.9); Hemoglobin 12.4 gm/dl (10.1-14.3); Lymphocytes # (Auto) 1.2 K/mm3 (1.2-5.4); Lymphocytes % (Auto) 26.8 % (13.4-35.0); Mean Corpuscular HGB Conc 32 % (30-34); Mean Corpuscular Volume 88 fl (79-97); Monocytes # (Auto) 0.6 K/mm3 (0.0-0.8); Monocytes % (Auto) 13.4 % (0.0-7.3); Platelet Count 172 K/mm3 (140-440); Red Blood Count 4.44 M/mm3 (3.65-5.03)
[2021-09-12] MEDS ORDERED: ASPIRIN EC 325 MG TAB PO ONE (08:30)
[2021-09-12 08:41] LABS: INR 0.94 (0.87-1.13)
[2021-09-12 08:42] LABS: Blood Urea Nitrogen 12 mg/dL (7-17); Calcium 9.6 mg/dL (8.4-10.2); Hemolysis Index 4; Partial Thromboplastin Time 33.3 Sec. (24.2-36.6)
[2021-09-12 08:44] LABS: BUN/Creatinine Ratio 17
[2021-09-12] MEDS ORDERED: HEPARIN/NS 5000 UNIT/500ML 1,000 ML IR ONE (08:54)
[2021-09-12] MEDS ORDERED: HEPARIN 10,000 UNITS/10 ML VIAL ONE (08:54)
[2021-09-12] MEDS ORDERED: VERAPAMIL 5 MG/2 ML INJ ONE (08:54)
[2021-09-12] MEDS: LIDOCAINE (2%) 20 MG/1 ML VIAL 20 ML MDV INFILTRATI ONE ×2 (09:18→09:40)
[2021-09-12] MEDS: MIDAZOLAM 2 MG/2 ML INJ ONE ×2 (09:18→09:40)
[2021-09-12] MEDS: fentaNYL 100 MCG/2 ML INJ ONE ×2 (09:18→09:44)
[2021-09-12] MEDS ORDERED: hydrALAZINE 20 MG/1 ML INJ ONE (09:48)
--- NOTE | 2021-09-12 10:28 | Electrocardiograph Report ---
[facility] Test Date: 2021-09-12 Test Time: 08:02:59 Pat Name: DANA AUSTIN Department: Room: Gender: F Medication Administration Professional: JAKUB : 1955 Requested By: REESE DEXTER Order Number: [id number] Reading MD: Reese Dexter Measurements Intervals Osteen Rate: 67 P: -27 NH: 139 QRS: 18 QRSD: 80 T: 5 QT: 423 QTc: 447 Interpretive Statements Sinus rhythm Left ventricular hypertrophy No previous ECG available for comparison Electronically Signed On 09-12-2021 10:28:16 EST by Reese Dexter
--- NOTE | 2021-09-12 10:33 | Cardiac Catherization Report ---
DATE OF SERVICE: 09/12/2021 LEFT HEART CATHETERIZATION CLINICAL INFORMATION: This is a 66-year-old female with obesity, paroxysmal atrial fibrillation, hypertension, hyperlipidemia, abnormal stress test with anterior wall ischemia, is here for persistent shortness of breath, abnormal stress test despite medical therapy, here for left heart catheterization. Procedure was done with moderate sedation, started 9:18, finished at 9:54, 36 minutes of moderate sedation. DESCRIPTION OF PROCEDURE: Procedure was done via the right radial artery, sterile technique and local anesthesia. A 6-Montserratian radial sheath inserted. Left system engaged with JL3.5 catheter. Left main is large and patent, bifurcates into large LAD, is patent with mild luminal irregularities. Diagonal 1 medium caliber patent. Circumflex is a large caliber vessel, patent with mild luminal irregularities, goes into a large OM1 that is patent. RCA is a small to medium caliber vessel, codominant vessel, patent. LV gram done in KACI and QUINTERO view shows normal LV function, LVEDP of 30 mmHg, LV is 190. Aortic is 190/100. No gradient across the aortic valve on pullback. The 5-Montserratian catheters all taken over guidewire. A 6-Montserratian radial sheath was discontinued. Radial band applied. No hematoma, no bleeding. SUMMARY: 1. Left main patent. LAD patent, mild luminal irregularities. Diagonal 1 patent. Circumflex patent. There is a large OM1 that is patent. RCA codominant vessel, patent. Normal LV function with elevated left end-diastolic pressure. 2. Aggressive medical management. The patient tolerated the procedure well. Discussed with family. TID: [id number] RECEIPT: [id number] SALOME/WILLY/SANDHYA
--- NOTE | 2021-09-12 12:22 | Short Stay Summary ---
Short Stay Documentation Date of service: 09/12/21 - History H&P: obtained from office - Allergies and Medications Current Medications: Allergies atorvastatin Allergy (Verified 09/12/21 08:14) Unknown Home Medications Medication Instructions Recorded Confirmed Last Taken Type Omeprazole 20 mg PO DAILY 12/08/17 09/12/21 09/11/21 08:40 History Ergocalciferol [Vitamin D2] 1 cap PO QWEEK 05/25/19 09/12/21 09/11/21 08:40 History Fluticasone (Nf) [Flovent 220 2 puff IH BID 05/25/19 09/12/21 09/11/21 08:40 History MCG/PUFF HFA] Fluticasone [Flonase] 1 spray NS QDAY 05/25/19 09/12/21 09/11/21 08:40 History Furosemide [Lasix TAB] 40 mg PO QDAY 05/25/19 09/12/21 09/11/21 08:40 History Letrozole (Nf) [Femara (Nf)] 2.5 mg PO QDAY 05/25/19 09/12/21 09/11/21 08:40 History Metoprolol Succinate [Kapspargo 50 mg PO QHS 05/25/19 09/12/21 09/11/21 08:40 History Sprinkle] Olmesartan Medoxomil [Benicar] 40 mg PO QDAY 05/25/19 09/12/21 09/11/21 08:40 History HYDROcodone/APAP 5-325 [[place] 1 each PO Q6HR PRN #5 tablet 05/30/19 09/12/21 09/11/21 08:40 Rx 5/325] Apixaban [Eliquis] 5 mg PO BID 09/12/21 09/12/21 09/11/21 08:00 History 2 tabs Potassium Chloride [K-Dur] 10 meq PO QDAY 09/12/21 09/12/21 09/11/21 History 1 tab Active Medications Sodium Chloride (Nacl 0.9% 500 Ml) 500 mls @ 50 mls/hr IV DIRECT LUIS Stop: 09/12/21 17:59 - Physical exam Integumentary: other (Dressing clean dry and intact. No signs of bleeding or hematoma) - Brief post op/procedure progress note Date of procedure: 09/12/21 Pre-op diagnosis: Abnormal stress test Post-op diagnosis: other (Normal coronary) Anesthesia: local Estimated blood loss: minimal - Hospital course Hospital course: Patient underwent cardiac cath this a.m. Patient found to have normal coronaries. Patient tolerated procedure well with no complications - Disposition Condition at discharge: Good Disposition: 01 HOME / SELF CARE / HOMELESS - Discharge Diagnoses (1) Afib Status: Acute (2) HTN (hypertension) Status: Acute (3) HLD (hyperlipidemia) Status: Acute (4) Mitral regurgitation Status: Acute (5) Chronic venous insufficiency Status: Acute Short Stay Discharge Plan Activity: advance as tolerated Diet: low fat, low cholesterol, low salt Wound: keep clean and dry, per your surgeon's advice Additional Instructions: Patient to follow-up with her primary photographic plate maker in 1 to 2 weeks following discharge. Follow up with: MANJEET GARCÍA NP [Primary Care Provider] - 7 Days
[2021-09-12 12:41] VITALS: BP 163/69
== END 2021-09-12 07:33 | disposition home or self-care (01) ==
LOC: CATHLABREC 07:32
PROVIDERS: ATTEND Internal Medicine
DX: I48.0 Paroxysmal atrial fibrillation (principal); R94.39 Abnormal result of other cardiovascular function study; R06.02 Shortness of breath; I10 Essential (primary) hypertension; I87.2 Venous insufficiency (chronic) (peripheral); I34.0 Nonrheumatic mitral (valve) insufficiency; J45.909 Unspecified asthma, uncomplicated; K21.9 Gastro-esophageal reflux disease without esophagitis; M19.90 Unspecified osteoarthritis, unspecified site; G47.33 Obstructive sleep apnea (adult) (pediatric); E66.01 Morbid (severe) obesity due to excess calories; E78.2 Mixed hyperlipidemia; Z79.899 Other long term (current) drug therapy; Z88.8 Allergy status to other drugs, medicaments and biological substances; Z87.891 Personal history of nicotine dependence; Z85.3 Personal history of malignant neoplasm of breast; Z90.710 Acquired absence of both cervix and uterus; Z80.3 Family history of malignant neoplasm of breast; Z68.38 Body mass index [BMI] 38.0-38.9, adult
CPT/HCPCS: 36415; 80048; 85025; 85610; 85730; 93005; 93010; 93458; 99156; 99157; J0360; J1644; J2250; J3010; J3490; J7040; C1769; C1894; Q9967

== ENCOUNTER 2021-12-17 09:28 | Outpatient (CLI) | payer MEDICARE ==
--- NOTE | 2021-12-19 10:09 | Mammography Report ---
DIGITAL SCREENING MAMMOGRAM WITH CAD, 12/17/2021 CLINICAL INFORMATION / INDICATION: Routine screening mammography. SCREENING MAMMO TECHNIQUE: Digital bilateral 2D mammography was obtained in the craniocaudal and mediolateral obliqu e projections. This examination was interpreted with the benefit of Computer-Aided Detection analysis . COMPARISON: 04/11/2019 through 10/29/2020. FINDINGS: Breast Density: There are scattered areas of fibroglandular density. No dominant mass, suspicious calcifications, or architectural distortion in the right breast. Postlumpectomy/radiation changes in the left medial breast are stable. No new abnormality is seen. IMPRESSION: No mammographic evidence of malignancy. Follow up recommendation: Routine yearly BI-RADS Category 2: BENIGN. A "normal" or negative report should not discourage follow up or biopsy of a clinically significant f inding. A written summary of these findings will be mailed to the patient. The patient will be entered into a mammography reporting system which will generate a reminder letter for the patient's next appointmen t at the appropriate interval. The [employer] recommends yearly mammograms starting at age 40 and continuing as l soy as a woman is in good health. Breast MRI is recommended for women with an approximate 20-25% or greater lifetime risk of breast cancer, including women with a strong family history of breast or ova indira cancer or who have been treated for Hodgkin's disease. Signer Name: Jim Sims MD Signed: 12/19/2021 10:04 AM Workstation Name: [email or web address]
== END 2021-12-17 09:29 | disposition home or self-care (01) ==
LOC: SPVWC 09:28
PROVIDERS: ATTEND Surgery
DX: Z12.31 Encounter for screening mammogram for malignant neoplasm of breast (principal)
CPT/HCPCS: 77067